=== PATIENT | female | born 2000 | race Caucasian/White ===

== ENCOUNTER 2020-01-18 13:37 | Observation (INO) ==
[2020-01-18 14:23] LABS: Basophils # 0.1 K/mcL (0.0-0.2); Basophils % 1.1 %; Eosinophils # 0.1 K/mcL (0.0-0.6); Eosinophils % 1.5 %; Hematocrit 40.7 % (35.3-44.9); Hemoglobin 13.4 g/dL (11.5-15.4); Immature Granulocytes % 0.4 % (0-4); Lymphocytes # 1.3 K/mcL (0.6-4.6); Lymphocytes % 24.7 %; Mean Corpuscular HGB Conc 32.9 g/dL (31.6-35.5); Mean Corpuscular Volume 91.1 fL (83.0-100.0); Mean Platelet Volume 9.6 fL (9.4-12.4); Monocytes # 0.5 K/mcL (0.0-1.3); Monocytes % 8.9 %; Neutrophils # 3.4 K/mcL (1.6-8.9); Platelet Count 243 K/mcL (140-400); Red Blood Count 4.47 M/mcL (3.82-4.97); Segmented Neutrophils % 63.4 %; White Blood Count 5.4 K/mcL (4.3-11.1)
[2020-01-18 14:30] LABS: Bacteria,Urine Few per hpf (None-Few); Bilirubin,Urine Negative (Negative); Blood,Urine Moderate (Negative); Clarity,Urine Turbid (Clear); Color,Urine Yellow (Yellow); Glucose,Urine (UA) Normal (Normal); Hyaline Casts,Urine Few per lpf (None Seen); Ketones,Urine Negative (Negative); Leukocyte Esterase,Urine Moderate (Negative); Mucus,Urine Many per lpf (None-Few); Nitrite,Urine Positive (Negative); Protein,Urine Trace mg/dL (Neg-Trace); Specific Gravity,Urine 1.028 (1.010-1.025); Squamous Epithelial Cell,Urine Moderate per hpf (None-Few); Urobilinogen,Urine Normal (Normal); WBC,Urine 15-30 per hpf (0-3)
[2020-01-18 14:30] LABS: Estimated Average Glucose 108 mg/dl
[2020-01-18] MEDS ORDERED: cephALEXin 250 MG CAPSULE PO ONE (14:37)
[2020-01-18 15:08] LABS: Acetaminophen < 10 mcg/mL (10-20); BUN/Creatinine Ratio 27 (6-26); Blood Urea Nitrogen 17 mg/dL (6-20); Calcium 9.5 mg/dL (8.6-10.3); Carbon Dioxide 22 mEq/L (23-29); Chloride 108 mEq/L (98-107); Chol/HDL Ratio 3.2 (0-4.9); Cholesterol 149 mg/dL (< 200); Ethanol < 10 mg/dL (Less than 10); Glucose 102 mg/dL (70-105); HDL Cholesterol 47 mg/dL (40-59); LDL Cholesterol,Calculated 90 mg/dL (< 100); Osmolality,Calculated 288 (280-300); Potassium 3.5 mEq/L (3.5-5.1); Salicylate < 2.5 mg/dL (15.0-30.0); Sodium 138 mEq/L (136-145); Triglycerides 58 mg/dL (< 150); eGFR For African Americans > 60; eGFR For Non-African Americans > 60
[2020-01-18 15:20] LABS: Amphetamine Screen,Urine Negative ng/mL (Cutoff=1000); Barbiturate Screen,Urine Negative ng/mL (Cutoff=200)
[2020-01-18 15:21] LABS: Benzodiazepines Screen,Urine Negative ng/mL (Cutoff=300); Cocaine Screen,Urine Negative ng/mL (Cutoff= 300); Opiate Screen,Urine Negative ng/mL (Cutoff=300); Phencyclidine Screen,Urine Negative ng/mL (Cutoff=25)
[2020-01-18 15:23] LABS: Cannabinoid Screen,Urine Negative ng/mL (Cutoff = 50)
[2020-01-18] MEDS ORDERED: Ondansetron 4 MG/2 ML VIAL IVP PRN (16:10)
[2020-01-18] MEDS ORDERED: Naloxone 0.4 MG/ML INJ IVP PRN (16:10)
[2020-01-18] MEDS ORDERED: Fluticasone Propionate Nasal 50 MCG/SPRAY BOTTLE NS PRN (16:23)
[2020-01-18] MEDS: *HR* Heparin 5,000 UNIT/ML VIAL SQ SCH (17:50)
[2020-01-18] MEDS: Ringers Solution, Lactated 1,000 ML IVC SCH (17:50)
[2020-01-18] MEDS ORDERED: Cariprazine Hcl [Vraylar] 3 MG PO SCH (21:00)
[2020-01-19 01:44] LABS: Basophils # 0.1 K/mcL (0.0-0.2); Basophils % 1.3 %; Eosinophils # 0.2 K/mcL (0.0-0.6); Eosinophils % 3.2 %; Hematocrit 37.8 % (35.3-44.9); Hemoglobin 12.1 g/dL (11.5-15.4); Immature Granulocytes % 0.6 % (0-4); Lymphocytes # 2.3 K/mcL (0.6-4.6); Lymphocytes % 47.7 %; Mean Corpuscular Hemoglobin 29.6 pg (28.0-33.3); Mean Corpuscular Volume 92.4 fL (83.0-100.0); Mean Platelet Volume 9.5 fL (9.4-12.4); Monocytes # 0.6 K/mcL (0.0-1.3); Monocytes % 11.9 %; Neutrophils # 1.7 K/mcL (1.6-8.9); Platelet Count 230 K/mcL (140-400); Red Blood Count 4.09 M/mcL (3.82-4.97); Segmented Neutrophils % 35.3 %; White Blood Count 4.7 K/mcL (4.3-11.1)
[2020-01-19 02:02] LABS: BUN/Creatinine Ratio 27 (6-26); Blood Urea Nitrogen 13 mg/dL (6-20); Calcium 8.6 mg/dL (8.6-10.3); Carbon Dioxide 22 mEq/L (23-29); Chloride 108 mEq/L (98-107); Glucose 90 mg/dL (70-105); Osmolality,Calculated 286 (280-300); Potassium 3.5 mEq/L (3.5-5.1); Sodium 138 mEq/L (136-145); eGFR For African Americans > 60; eGFR For Non-African Americans > 60
[2020-01-19] MEDS: Ringers Solution, Lactated 1,000 ML IVC SCH (04:36)
[2020-01-19] MEDS: *HR* Heparin 5,000 UNIT/ML VIAL SQ SCH (05:43)
[2020-01-19 15:02] VITALS: BP 105/64
== END 2020-01-19 15:15 ==
LOC: EMEROOARM 13:37 → 3BNU 13:37 → SUATTDRO 16:30 → 3BNU 17:11
PROVIDERS: ADMIT Internal Medicine; ATTEND Internal Medicine

== ENCOUNTER 2020-01-19 15:15 | Observation (INO) ==
[2020-01-19] MEDS ORDERED: hydrOXYzine pamoate 25 MG CAPSULE PO PRN (16:05)
[2020-01-19] MEDS ORDERED: Haloperidol Lactate 5 MG/ML VIAL IM PRN (16:05)
[2020-01-19] MEDS ORDERED: haloperidoL 5 MG TABLET PO PRN (16:05)
[2020-01-19] MEDS ORDERED: *HR* LORazepam 1 MG TABLET PO PRN (16:05)
[2020-01-19] MEDS ORDERED: Mag Hydrox/Al Hydrox/Simeth 30 ML UDC PO PRN (16:05)
[2020-01-19] MEDS ORDERED: *HR* LORazepam 2 MG/ML VIAL IM PRN (16:05)
[2020-01-19] MEDS ORDERED: Ibuprofen 400 MG TABLET PO PRN (16:05)
[2020-01-19] MEDS ORDERED: traZODone 50 MG TABLET PO PRN (16:05)
[2020-01-19] MEDS ORDERED: MOM Conc 10 ML UD.LIQ PO PRN (16:05)
[2020-01-19] MEDS ORDERED: Fluticasone Propionate Nasal 50 MCG/SPRAY BOTTLE NS PRN (16:06)
[2020-01-19] MEDS ORDERED: LEVONORGESTREL ETHINYL ESTRADIOL PO SCH (21:00)
[2020-01-19] MEDS ORDERED: (Cariprazine Hcl [Vraylar] 3 MG) PO SCH (21:00)
[2020-01-20 10:03] VITALS: BP 113/77
== END 2020-01-20 11:45 | disposition home or self-care (01) ==
LOC: INTOOBSV 15:15 → 1ANU 15:23
PROVIDERS: ADMIT Psychiatry & Neurology Psychiatry; ATTEND Psychiatry & Neurology Psychiatry